=== PATIENT | female | born 1955 | race American Indian/Alaskan Native ===

== ENCOUNTER 2018-10-11 14:17 | Outpatient (CLI) | payer OTHER ==
[2018-10-11] MEDS ORDERED: PROVENTIL IH ONE (14:55)
== END 2018-10-11 14:18 | disposition home or self-care (01) ==
LOC: PF 14:17
PROVIDERS: ATTEND Internal Medicine
DX: G47.30 Sleep apnea, unspecified (principal); J45.909 Unspecified asthma, uncomplicated
CPT/HCPCS: 94060; 94640